=== PATIENT | male | born 1960 | race Asian ===

== ENCOUNTER 2020-06-08 12:10 | Outpatient (CLI) | payer OTHER ==
[2020-06-08 12:51] LABS: POTASSIUM 3.9 mmol/L (3.6-5.2)
== END 2020-06-08 19:26 | disposition home or self-care (01) ==
LOC: LABW 12:10
PROVIDERS: ATTEND Nurse Practitioner Family
DX: B20 Human immunodeficiency virus [HIV] disease (principal)
CPT/HCPCS: 36415; 80053

== ENCOUNTER 2020-07-07 14:25 | Emergency (ER) | payer OTHER ==
[~2020-07-07] VITALS: Ht 185.4 cm; Wt 98.9 kg
[2020-07-07] MEDS ORDERED: HIV MED PO (14:42)
[2020-07-07 15:22] VITALS: BP 150/83; TEMP 98
== END 2020-07-07 15:32 | disposition home or self-care (01) ==
LOC: ED 14:25
DX: S51.842A Puncture wound with foreign body of left forearm, initial encounter (principal); W45.8XXA Other foreign body or object entering through skin, initial encounter; Y92.89 Other specified places as the place of occurrence of the external cause
CPT/HCPCS: 90471; 90715; 99283

== ENCOUNTER 2021-02-05 09:15 | Outpatient (CLI) | payer OTHER ==
[~2021-02-05 09:15] MED LIST: HIV MED PO
== END 2021-02-05 20:21 | disposition home or self-care (01) ==
LOC: RAD 09:15
PROVIDERS: ATTEND Nurse Practitioner Family
DX: M54.50 Low back pain, unspecified (principal); M25.551 Pain in right hip

== ENCOUNTER 2021-02-15 12:44 | Emergency (ER) | payer OTHER ==
[~2021-02-15] VITALS: Ht 188 cm; Wt 98.9 kg
[2021-02-15 13:30] VITALS: BP 144/74; TEMP 99.2
== END 2021-02-15 13:30 | disposition home or self-care (01) ==
LOC: ED 12:44
DX: M25.551 Pain in right hip (principal); M79.604 Pain in right leg; M71.551 Other bursitis, not elsewhere classified, right hip
CPT/HCPCS: 96372; 99283; J1885; J2930

== ENCOUNTER 2022-04-29 08:10 | Outpatient (CLI) | payer OTHER | END 2022-04-29 23:04 | disposition home or self-care (01) | LOC: CT 08:10 | PROVIDERS: ATTEND Physician Assistant | DX: M25.551 Pain in right hip (principal) ==